=== PATIENT | female | born 1995 | race Caucasian/White ===

== ENCOUNTER → 2016-06-27 | Outpatient (CLI) | payer OTHER ==
--- NOTE | 2016-06-27 08:59 | DIAGNOSTIC IMAGING REPORT ---
PROCEDURE: XR HIP 2VW W W/O AP PELVIS-LT INDICATION: Chronic left hip pain, initial encounter TECHNIQUE: AP view of the pelvis and hips with lateral view of the left hip. COMPARISON: None. FINDINGS: LEFT HIP: No fracture or dislocation. Normal joint space. PELVIS: No suspicious osseous lesions. Soft tissues are unremarkable. IMPRESSION: 1. Negative left hip
== END ==
LOC: XR SRH 08:00
DX: M25.552 Pain in left hip (principal)

== ENCOUNTER 2016-09-30 12:00 | Outpatient (CLI) | payer OTHER ==
--- NOTE | 2016-09-30 12:41 | DIAGNOSTIC IMAGING REPORT ---
PROCEDURE: XR WRIST MIN 3 VIEWS - LEFT INDICATION: PAIN OVER ULNAR ASPECT OF WRIST WITH NO KNOWN INJURY TECHNIQUE: Four views of the left wrist. COMPARISON: None. FINDINGS: Normal mineralization. No fractures. Normal osseous alignment. No suspicious soft-tissue calcification or radiodense foreign bodies. IMPRESSION: 1. Intact left wrist.
== END 2016-09-30 23:00 ==
LOC: XR SRH 12:00
DX: M25.532 Pain in left wrist (principal)